=== PATIENT | female | born 1985 | race Caucasian/White ===

== ENCOUNTER 2016-07-09 15:18 | Emergency (ER) | payer OTHER ==
--- NOTE | 2016-07-09 18:29 | ED NURSING NOTES ---
Clinical Report - Nurses [facility] [address] [place] [address] 07/09/2016 15:22 Patient: SHIKHA DE LEÓN TRIAGE Triage time 15:43 Jul 09 2016. Acuity: LEVEL 3. Chief Complaint: ABDOMINAL PAIN, NAUSEA and DIARRHEA. Alert. RICCARDO COMA SCORE: Riccardo Coma Scale: 15- eyes open spontaneously (4); best verbal response- oriented x 4 (5); best motor response- obeys commands (6). --15:58 Delroy Billings R.N. 15:43 07/09/16. BP: 162/90. HR: 112. RR: 16. O2 saturation: 100% on room air. Temp: 99.2 F. Pain level now: 6/10. Additional comments: Abdominal Pain. --15:58 Delroy Billings R.N. Weight: 62.5 kg stated. Height/Length: 65 inches Per Patient. BMI: 23. --15:47 Delroy Billings R.N. Medications Methadone HCl Oral 50 mg , daily. --15:48 Delroy Billings R.N. Omeprazole Oral 20 mg, daily. --15:49 Delroy Billings R.N. Ranitidine HCl Oral 150 mg, daily. --15:49 Delroy Billings R.N. Allergies No Known Drug Allergy. --15:48 Delroy Billings R.N. Medication/allergy information source: the patient. --15:58 Delroy Billings R.N. History Arrived by private vehicle. Historian: patient. Accompanied by spouse. [facility] ( Abdominal Pain on the RLQ associated with diarrhea last night.). This started today. She has had nausea, diarrhea and abdominal pain. ( Weakness). 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 PAST MEDICAL HX: Immunizations: status is unknown. Last normal menstrual period- Doesn't have periods anymore. Denies current . SOCIAL HX: Heavy tobacco smoker (cigarette)- less than 1 pack per day. History of drug use: cocaine, narcotics, heroin. No recent travel. ABUSE ASSESSMENT: No report of abuse. FALL RISK ASSESSMENT: Fall risk assessment completed. No fall risk identified. NUTRITIONAL RISK ASSESSMENT: The nutritional risk assessment revealed no deficiencies. FUNCTIONAL ASSESSMENT: Functional assessment: no impairments noted. LEARNING NEEDS ASSESSMENT: The learning needs assessment revealed no barriers. SKIN INTEGRITY ASSESSMENT: Skin integrity risk assessment completed. No skin integrity risk identified. --15:58 Delroy Billings R.N. PROBLEMS: TB Carrier. Gout. Gerd. Kidney Infection. Substance Abuse. Hepatitis C antibody measurement. --15:54 Delroy Billings R.N. ADDITIONAL SURGERIES: Cholecystectomy. --15:54 Delroy Billings R.N. Interventions ID band on patient. To treatment room. --15:58 Delroy Billings R.N. PHYSICAL ASSESSMENT Ambulatory to room. GENERAL / NEURO / PSYCH: Alert. Oriented X 4. Appears in pain. HEENT: Mucous membranes are pink. RESPIRATORY: Respirations not labored. CVS: Cardiac rhythm: sinus tachycardia. Capillary refill less than 2 seconds. GI / : Abdomen soft. Abdominal tenderness in the epigastric area and right lower quadrant. SKIN: Skin is warm and dry. --15:59 Delroy Billings R.N. NURSING PROGRESS NOTES Patient gowned. Reassurance given to the patient. Patient identifiers checked. Call light placed in reach. Side rails up. Bed placed in lowest position. Brakes of bed on. Patient ready for evaluation- chart flagged and ED physician notified. --15:59 Delroy Billings R.N. 16:37 07/09/2016 Site #1 started via IV in the left forearm with an 20g angiocath, with aseptic technique and good blood return; one attempt. Blood drawn: rainbow set. Labeled in the presence of the patient and sent to the lab. Saline lock flushed with 10 mL saline. --16:47 Delroy Billings R.N. 16:38 07/09/2016 Started bag #1 1000 mL IV Fluids IV NS (Saline); at 1000 mL/hr over 60 minute(s) via site #1 via IV pump. Allergies verified and confirmed 5 rights. IV patency established. IV site checked: no pain, redness, or swelling. IV flushed thoroughly pre- and post-medication administration. --16:48 Delroy Billings R.N. 17:25 07/09/2016 Toradol IVP 30 mg given over 1 minute(s) via site #1. Allergies verified and confirmed 5 rights. IV patency established. IV site checked: no pain, redness, or swelling. IV flushed thoroughly pre- and post-medication administration. IVP given by RN. --17:25 Rachel Long R.N. 17:25 07/09/2016 Zofran (Ondansetron HCl) IVP 4 mg given over 1 minute(s) via site #1. Allergies verified and confirmed 5 rights. IV patency established. IV site checked: no pain, redness, or swelling. IV flushed thoroughly pre- and post-medication administration. IVP given by RN. --17:25 Rachel Long R.N. 17:53 07/09/2016 IV Fluids IV NS Bag Change: bag #1 infused. Total amount infused: 1000. STARTED bag #2 (1000 mL) at 1000 mL/hr via IV pump. Confirmed 5 rights. IV patency established. IV site checked: no pain, redness, or swelling. IV flushed thoroughly. --17:58 Delroy Billings R.N. 18:17 07/09/2016 K-DUR (Potassium Chloride Nadya ER) PO 40 meq given. Allergies verified and confirmed 5 rights. --18:17 Rachel Long R.N. DISPOSITION / DISCHARGE 19:07 07/09/16. BP: 148/70. HR: 98. RR: 16. O2 saturation: 100% on room air. Temp: 98.9 F (oral). --19:09 Rachel Long R.N. Departure time: 18:50 Jul 09 2016. Condition at departure: improved and stable. No learning barriers present. Discharge instructions provided and reviewed with the patient. Patient verbalized understanding. Written instructions provided in Croatian. The patient was discharged by the nurse practitioner. She was discharged home and accompanied by lidar scientist. She left the Emergency Department ambulatory and via private vehicle. Candy Cutter Hand driving. --19: Rachel Long R.N. 18:44 07/09/2016 Site #1 removed upon discharge. Catheter intact. Manual pressure and bandaid applied. --19:09 Rachel Long R.N. 19:14 07/09/2016 IV Fluids IV NS Discontinued: bag #2 discontinued upon discharge. Total amount infused: 900 mL. IV patency established. IV site checked: no pain, redness, or swelling. IV flushed thoroughly. --19:14 Rachel Long R.N. Locked/Released at 07/09/2016 19:14 by Rachel Long R.N.
--- NOTE | 2016-07-09 18:29 | ED NURSING NOTES ---
Clinical Report - Nurses [facility] [address] [place] [address] 07/09/2016 15:22 Patient: SHIKHA DE LEÓN TRIAGE Triage time 15:43 Jul 09 2016. Acuity: LEVEL 3. Chief Complaint: ABDOMINAL PAIN, NAUSEA and DIARRHEA. Alert. RICCARDO COMA SCORE: Riccardo Coma Scale: 15- eyes open spontaneously (4); best verbal response- oriented x 4 (5); best motor response- obeys commands (6). --15:58 Delroy Billings R.N. 15:43 07/09/16. BP: 162/90. HR: 112. RR: 16. O2 saturation: 100% on room air. Temp: 99.2 F. Pain level now: 6/10. Additional comments: Abdominal Pain. --15:58 Delroy Billings R.N. Weight: 62.5 kg stated. Height/Length: 65 inches Per Patient. BMI: 23. --15:47 Delroy Billings R.N. Medications Methadone HCl Oral 50 mg , daily. --15:48 Delroy Billings R.N. Omeprazole Oral 20 mg, daily. --15:49 Delroy Billings R.N. Ranitidine HCl Oral 150 mg, daily. --15:49 Delroy Billings R.N. Allergies No Known Drug Allergy. --15:48 Delroy Billings R.N. Medication/allergy information source: the patient. --15:58 Delroy Billings R.N. History Arrived by private vehicle. Historian: patient. Accompanied by spouse. [facility] ( Abdominal Pain on the RLQ associated with diarrhea last night.). This started today. She has had nausea, diarrhea and abdominal pain. ( Weakness). 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 PAST MEDICAL HX: Immunizations: status is unknown. Last normal menstrual period- Doesn't have periods anymore. Denies current . SOCIAL HX: Heavy tobacco smoker (cigarette)- less than 1 pack per day. History of drug use: cocaine, narcotics, heroin. No recent travel. ABUSE ASSESSMENT: No report of abuse. FALL RISK ASSESSMENT: Fall risk assessment completed. No fall risk identified. NUTRITIONAL RISK ASSESSMENT: The nutritional risk assessment revealed no deficiencies. FUNCTIONAL ASSESSMENT: Functional assessment: no impairments noted. LEARNING NEEDS ASSESSMENT: The learning needs assessment revealed no barriers. SKIN INTEGRITY ASSESSMENT: Skin integrity risk assessment completed. No skin integrity risk identified. --15:58 Delroy Billings R.N. PROBLEMS: TB Carrier. Gout. Gerd. Kidney Infection. Substance Abuse. Hepatitis C antibody measurement. --15:54 Delroy Billings R.N. ADDITIONAL SURGERIES: Cholecystectomy. --15:54 Delroy Billings R.N. Interventions ID band on patient. To treatment room. --15:58 Delroy Billings R.N. PHYSICAL ASSESSMENT Ambulatory to room. GENERAL / NEURO / PSYCH: Alert. Oriented X 4. Appears in pain. HEENT: Mucous membranes are pink. RESPIRATORY: Respirations not labored. CVS: Cardiac rhythm: sinus tachycardia. Capillary refill less than 2 seconds. GI / : Abdomen soft. Abdominal tenderness in the epigastric area and right lower quadrant. SKIN: Skin is warm and dry. --15:59 Delroy Billings R.N. NURSING PROGRESS NOTES Patient gowned. Reassurance given to the patient. Patient identifiers checked. Call light placed in reach. Side rails up. Bed placed in lowest position. Brakes of bed on. Patient ready for evaluation- chart flagged and ED physician notified. --15:59 Delroy Billings R.N. 16:37 07/09/2016 Site #1 started via IV in the left forearm with an 20g angiocath, with aseptic technique and good blood return; one attempt. Blood drawn: rainbow set. Labeled in the presence of the patient and sent to the lab. Saline lock flushed with 10 mL saline. --16:47 Delroy Billings R.N. 16:38 07/09/2016 Started bag #1 1000 mL IV Fluids IV NS (Saline); at 1000 mL/hr over 60 minute(s) via site #1 via IV pump. Allergies verified and confirmed 5 rights. IV patency established. IV site checked: no pain, redness, or swelling. IV flushed thoroughly pre- and post-medication administration. --16:48 Delroy Billings R.N. 17:25 07/09/2016 Toradol IVP 30 mg given over 1 minute(s) via site #1. Allergies verified and confirmed 5 rights. IV patency established. IV site checked: no pain, redness, or swelling. IV flushed thoroughly pre- and post-medication administration. IVP given by RN. --17:25 Rachel Long R.N. 17:25 07/09/2016 Zofran (Ondansetron HCl) IVP 4 mg given over 1 minute(s) via site #1. Allergies verified and confirmed 5 rights. IV patency established. IV site checked: no pain, redness, or swelling. IV flushed thoroughly pre- and post-medication administration. IVP given by RN. --17:25 Rachel Long R.N. 17:53 07/09/2016 IV Fluids IV NS Bag Change: bag #1 infused. Total amount infused: 1000. STARTED bag #2 (1000 mL) at 1000 mL/hr via IV pump. Confirmed 5 rights. IV patency established. IV site checked: no pain, redness, or swelling. IV flushed thoroughly. --17:58 Delroy Billings R.N. 18:17 07/09/2016 K-DUR (Potassium Chloride Nadya ER) PO 40 meq given. Allergies verified and confirmed 5 rights. --18:17 Rachel Long R.N. DISPOSITION / DISCHARGE 19:07 07/09/16. BP: 148/70. HR: 98. RR: 16. O2 saturation: 100% on room air. Temp: 98.9 F (oral). --19:09 Rachel Long R.N. Departure time: 18:50 Jul 09 2016. Condition at departure: improved and stable. No learning barriers present. Discharge instructions provided and reviewed with the patient. Patient verbalized understanding. Written instructions provided in Tajik. The patient was discharged by the nurse practitioner. She was discharged home and accompanied by central supply assistant. She left the Emergency Department ambulatory and via private vehicle. Spot Machine Operator driving. --19: Rachel Long R.N. 18:44 07/09/2016 Site #1 removed upon discharge. Catheter intact. Manual pressure and bandaid applied. --19:09 Rachel Long R.N. 19:14 07/09/2016 IV Fluids IV NS Discontinued: bag #2 discontinued upon discharge. Total amount infused: 900 mL. IV patency established. IV site checked: no pain, redness, or swelling. IV flushed thoroughly. --19:14 Rachel Long R.N. Locked/Released at 07/09/2016 19:14 by Rachel Long R.N.
--- NOTE | 2016-07-09 18:29 | ED CLINICAL REPORT ---
Clinical Report - Physicians/Mid Levels [facility] [address] [place] [address] 07/09/2016 15:22 Patient: SHIKHA DE LEÓN Time Seen: 16:13; initial patient contact, initial documentation, patient care assumed. Arrived- By private vehicle. Historian- patient and spouse. HISTORY OF PRESENT ILLNESS Chief Complaint: DIARRHEA. This started last night and is still present. No recent travel. She has had nausea and constant abdominal pain. The pain is described as located in the RUQ and right side of the abdomen. She has had diarrhea (today). This has occurred several times. It has been watery and has been associated with cramps. No bloody, mucous containing or blood-tinged diarrhea. No constipation, flank pain, history of possible bad food exposure, known contact with a sick individual or change in routine. Has not recently been camping or on antibiotics. The illness is described as moderate. Similar symptoms previously: None. Recent medical care: Not recently seen/assessed. REVIEW OF SYSTEMS No fever, muscle aches, difficulty with urination, dark urine or chest pain. No difficulty breathing. All systems otherwise negative, except as recorded above. PAST HISTORY See nurses notes. PROBLEMS: TB Carrier. Gout. Gerd. Kidney Infection. Substance Abuse. Hepatitis C antibody measurement. --15:54 Delroy Billings RCyN. ADDITIONAL SURGERIES: Cholecystectomy. --15:54 Delroy Billings RCyN. SOCIAL HISTORY Light tobacco smoker. Occasional alcohol use. History of heavy IV drug use: cocaine, narcotics, heroin. Recently used drugs. No recent travel. Is a local resident. FAMILY HISTORY Negative. ADDITIONAL NOTES The nursing notes have been reviewed with agreement regarding the chief complaint, HPI, ROS, PMH and patient medications and allergies. PHYSICAL EXAM Vital Signs: 07/09/2016 15:43 BP: 162/90. HR: 112. RR: 16. O2 saturation: 100%. Temp: 99.2 F. Pain level now: 6/10. Have been reviewed as abnormal and appear to be correct. Hypertensive. Tachycardic. Respiratory rate normal. Temperature normal. Oxygen saturation normal. Appearance: Alert. Oriented X3. No acute distress. Eyes: Pupils equal, round and reactive to light. Eyes normal inspection. Neck: Normal inspection. Neck supple. CVS: Normal heart rate and rhythm. Heart sounds normal. Pulses normal. Respiratory: No respiratory distress. Breath sounds normal. Abdomen: Soft and nontender. Bowel sounds normal. No organomegaly. No mass. Back: Normal inspection. Skin: Skin warm and dry. Normal skin color. No rash. Normal skin turgor. Extremities: Extremities exhibit normal ROM. No lower extremity edema. Neuro: Oriented X 3. No motor deficit. No sensory deficit. LABS, X-RAYS, AND EKG Laboratory Tests: CBC w Diff: (EDMOND: 07/09/2016 16:20) ( [facility] 07/09/2016 17:30) Final results Test Result Flag Units (Reference) WHITE BLOOD COUNT 8.5 K/uL (4.5-11.5) RED BLOOD COUNT 3.42 L M/uL (4.00-5.20) HEMOGLOBIN 11.2 L gm/dL (12.0-16.0) HEMATOCRIT 33.0 L % (36.0-46.0) MEAN CELL VOLUME 96 fL (80-100) MEAN CORPUSCULAR HGB 33 pg (26-34) MEAN CORPUSCULAR HGB CONC 34 g/dL (31-37) RED CELL DISTRIBUTION WIDTH 15.0 H % (11.6-14.8) PLATELET COUNT 143 L K/uL (150-400) NEUTROPHIL % 58.5 % (50-75) LYMPH % 31.3 % (25-40) MONO % 6.1 % (3-14) EOSINOPHIL % 3.8 % (0-4) BASOPHIL % 0.3 % (0-2) Lipase: (EDMOND: 07/09/2016 16:20) ( [facility] 07/09/2016 17:41) Final results Test Result Flag Units (Reference) LIPASE 60 L U/L (73-393) AMYLASE 20 L U/L (25-115) CMP: (EDMOND: 07/09/2016 16:20) ( MsgRcvd 07/09/2016 17:01) Final results Test Result Flag Units (Reference) GLUCOSE 101 mg/dL (70-110) BUN 8 mg/dL (7-18) CREATININE 0.7 mg/dL (0.6-1.3) Estimated GFR >60 mL/min Estimated GFR- >60 mL/min Note: Persistent reduction over 3 months in eGFR<60 mL/min/1.73 m2 defines CKD. Patients with eGFR values>=60 mL/min/1.73 m2 may also have CKD if evidence ofpersistent proteinuria. Additional information may be foundat www.kidney.org. SODIUM 138 mmol/L (136-145) POTASSIUM 3.1 L mmol/L (3.5-5.1) CHLORIDE 102 mmol/L (98-107) CARBON DIOXIDE 26 mmol/L (21-32) CALCIUM 8.7 mg/dL (8.5-10.1) TOTAL PROTEIN 8.1 g/dL (6.4-8.2) ALBUMIN 3.4 g/dL (3.3-5.0) BILIRUBIN, TOTAL 4.7 H mg/dL (0.0-1.0) ALKALINE PHOSPHATASE 137 H U/L (46-116) AST (SGOT) 73 H U/L (15-37) ALT (SGPT) 57 U/L (12-78) . PROGRESS AND PROCEDURES Course of Care: 17:45 07/09/16. pt has [facility] that reads [facility] issue as here now, no narcs, #5 er visits, see report for full details 18:29 07/09/16. ivf's approx 500ml in, no urine sample yet, pt feeling better and thanked me for the care, dc plan discussed. Patient and spouse counseled in person regarding the patient's stable condition, test results and diagnosis. 18:29. Differential Diagnosis: I considered infectious etiology, inflammatory etiology, Crohn's disease, ulcerative colitis, diverticulitis, bacterial overgrowth, hyperkalemia, colon cancer, medication related etiology, irritable bowel syndrome and gallbladder disease as a possible cause of diarrhea in this patient. This is a partial list of diagnoses considered. (substance abuse). Above considerations are based on history, physical exam and laboratory data. Differential diagnosis was discussed with patient. Disposition: Discharged home in good and improved condition (18:29). Condition: good and stable. CLINICAL IMPRESSION Diarrhea Hypokalemia INSTRUCTIONS Drink plenty of fluids for the next 24 hours until better. (over the counter diarrhea medicine, as discussed). Warnings: GENERAL WARNINGS: Return or contact your physician immediately if your condition worsens or changes unexpectedly, if not improving as expected, or if other problems arise. SPECIFICALLY, return if you develop pain in the abdomen, fever, the inability to keep fluids down, blood in vomitus, blood in diarrhea, fainting or lightheadedness. Follow-up: Follow up with your doctor in about two days even if well. Call for an appointment. Summary of care provided to patient. Understanding of the discharge instructions verbalized by patient. (Electronically signed by Nola Walton A.R.N.P. 07/09/2016 20:04)
--- NOTE | 2016-07-09 18:29 | ED ORDER SUMMARY ---
..... Patient: SHIKHA DE LEÓN OrderSheet [facility] VisitID: [id number] [place] [address] 31y, F Registration Date/Time: 07/09/2016 ORDER SHEET Weight: 62.5 kg (stated) Allergies: No Known Drug Allergy GENERAL ORDERS: CMP Urgent (16:45 07/09/2016 JRomanelli R.N. verbal order read back to HBivens A.R.N.P.) (16:45 JRomanelli R.N.) CBC w Diff Urgent (17:09 07/09/2016 HBivens A.R.N.P.) (Ack 17:16 LTapper) (17:25 MWinterer R.N.) Amylase Urgent (17:09 07/09/2016 HBivens A.R.N.P.) (Ack 17:16 LTapper) (17:25 MWinterer R.N.) Lipase Urgent (17:07/09/2016 HBivens A.R.N.P.) (Ack 17:16 LTapper) (17:25 MWinterer R.N.) Urine Urgent (17:09 07/09/2016 HBivens A.R.N.P.) (Ack 17:16 LTapper) Urine Drug Screen Urgent (17:09 07/09/2016 HBivens A.R.N.P.) (Ack 17:16 LTapper) UA-Culture if indicated Urgent (18:17 07/09/2016 HBivens A.R.N.P.) (Ack 18:41 RKjeuga) MEDICATION ORDERS: K-Dur PO 40 meq (Do not crush or chew, NOW) (17:44 07/09/2016 HBivens A.R.N.P.) (Ack 18:14 MWinterer R.N.) (18:17 MWinterer R.N.) IV FLUIDS: IV Saline Lock (16:45 07/09/2016 JRomanelli R.N. verbal order read back to HBivens A.R.N.P.) (16:47 JRomanelli R.N.) IV NS : initial bolus none -, then 1000 mL/hr for X2 (NOW) (16:46 07/09/2016 uGrjit R.N. verbal order read back to HBivens A.R.N.P.) (16:48 Gurjit R.N.) Toradol IV 30 mg (NOW) (17:09 07/09/2016 HBivens A.R.N.P.) (Ack 17:18 MWinterer R.N.) (17:25 MWinterer R.N.) Zofran IV 4 mg (NOW) (17:09 07/09/2016 HBivens A.R.N.P.) (Ack 17:18 MWinterer R.N.) (17:25 MWinterer R.N.) ORDER SHEET NOTES: [Electronically signed by Rachel Long R.N. (19:14 07/09/2016)] [Electronically signed by Nola Walton A.R.N.P. (20:04 07/09/2016)] [Electronically locked/signed by Rachel Long R.N. (19:14 07/09/2016)]
--- NOTE | 2016-07-09 18:29 | ED ORDER SUMMARY ---
..... Patient: SHIKHA DE LEÓN OrderSheet [facility] VisitID: [id number] [place] [address] 31y, F Registration Date/Time: 07/09/2016 ORDER SHEET Weight: 62.5 kg (stated) Allergies: No Known Drug Allergy GENERAL ORDERS: CMP Urgent (16:45 07/09/2016 JRomanelli R.N. verbal order read back to HBivens A.R.N.P.) (16:45 JRomanelli R.N.) CBC w Diff Urgent (17:09 07/09/2016 HBivens A.R.N.P.) (Ack 17:16 LTapper) (17:25 MWinterer R.N.) Amylase Urgent (17:09 07/09/2016 HBivens A.R.N.P.) (Ack 17:16 LTapper) (17:25 MWinterer R.N.) Lipase Urgent (17:07/09/2016 HBivens A.R.N.P.) (Ack 17:16 LTapper) (17:25 MWinterer R.N.) Urine Urgent (17:09 07/09/2016 HBivens A.R.N.P.) (Ack 17:16 LTapper) Urine Drug Screen Urgent (17:09 07/09/2016 HBivens A.R.N.P.) (Ack 17:16 LTapper) UA-Culture if indicated Urgent (18:17 07/09/2016 HBivens A.R.N.P.) (Ack 18:41 RKjeuga) MEDICATION ORDERS: K-Dur PO 40 meq (Do not crush or chew, NOW) (17:44 07/09/2016 HBivens A.R.N.P.) (Ack 18:14 MWinterer R.N.) (18:17 MWinterer R.N.) IV FLUIDS: IV Saline Lock (16:45 07/09/2016 JRomanelli R.N. verbal order read back to HBivens A.R.N.P.) (16:47 JRomanelli R.N.) IV NS : initial bolus none -, then 1000 mL/hr for X2 (NOW) (16:46 07/09/2016 Gurjit R.N. verbal order read back to HBivens A.R.N.P.) (16:48 Gurjit R.N.) Toradol IV 30 mg (NOW) (17:09 07/09/2016 HBivens A.R.N.P.) (Ack 17:18 MWinterer R.N.) (17:25 MWinterer R.N.) Zofran IV 4 mg (NOW) (17:09 07/09/2016 HBivens A.R.N.P.) (Ack 17:18 MWinterer R.N.) (17:25 MWinterer R.N.) ORDER SHEET NOTES: [Electronically signed by Rachel Long R.N. (19:14 07/09/2016)] [Electronically signed by Nola Walton A.R.N.P. (20:04 07/09/2016)] [Electronically locked/signed by Rachel Long R.N. (19:14 07/09/2016)]
--- NOTE | 2016-07-09 20:04 | ED MAR SUMMARY ---
..... Medication Administration Record [facility] [address] [place] [address] Patient: SHIKHA DE LEÓN Visit ID: [id number] 31y, F Weight: 62.5 kg Height/Length: 65 in BMI: 23 ALLERGIES: No Known Drug Allergy Start 16:38 07/09/2016 Delroy Billings R.N., Stop 19:14 07/09/2016 Rachel Long R.N. Medication Administered: IV NS (SALINE), Dose: IV Fluids over 60 minute(s), Rate: 1000 mL/hr, Dispensed: 1000 mL bag, Site: #1 left forearm. Medication Ordered: IV NS : initial bolus none -, then 1000 mL/hr for X2 (NOW). Given 17:25 07/09/2016 Rachel Long R.N. Medication Administered: TORADOL [IVP], Dose: 30 mg IVP over 1 minute(s), Site: #1 left forearm. Medication Ordered: Toradol IV 30 mg (NOW). Given 17:25 07/09/2016 Rachel Long R.N. Medication Administered: ZOFRAN [IVP] (ONDANSETRON HCL), Dose: 4 mg IVP over 1 minute(s), Site: #1 left forearm. Medication Ordered: Zofran IV 4 mg (NOW). Given 18:17 07/09/2016 Rachel Long R.N. Medication Administered: K-DUR [PO] (POTASSIUM CHLORIDE KAYLA ER), Dose: 40 meq PO. Medication Ordered: K-Dur PO 40 meq (Do not crush or chew, NOW).
--- NOTE | 2016-07-09 20:04 | ED MED RECONCILIATION SUMMARY ---
Patient: SHIKHA DE LEÓN Medication Reconciliation Report [facility] VisitID: [id number] [address] [place] [address] 31y, F Registration Date/Time: 07/09/2016 Weight: 62.5 kg Height/Length: 65 in. BMI: 23.0 ALLERGIES: No Known Drug Allergy The patient's Home Medications are listed below: THE FOLLOWING MEDICATIONS NEED TO BE RECONCILED: Methadone HCl Oral 50 mg , daily Omeprazole Oral 20 mg, daily Ranitidine HCl Oral 150 mg, daily The source(s) of the original Home Medication information: patient The following Medications were given to the patient in the Emergency Department: IV NS IV Fluids bolus 0, then 1000 mL/hr, administered: 07/09/2016 4:38:00 PM Toradol [IVP] IVP 30 mg, administered: 07/09/2016 5:25:00 PM Zofran [IVP] IVP 4 mg, administered: 07/09/2016 5:25:00 PM K-DUR [PO] PO 40 meq, administered: 07/09/2016 6:17:00 PM The following Medications were prescribed to the patient: None.
--- NOTE | 2016-07-09 20:04 | ED MED RECONCILIATION SUMMARY ---
Patient: SHIKHA DE LEÓN Medication Reconciliation Report [facility] VisitID: [id number] [address] [place] [address] 31y, F Registration Date/Time: 07/09/2016 Weight: 62.5 kg Height/Length: 65 in. BMI: 23.0 ALLERGIES: No Known Drug Allergy The patient's Home Medications are listed below: THE FOLLOWING MEDICATIONS NEED TO BE RECONCILED: Methadone HCl Oral 50 mg , daily Omeprazole Oral 20 mg, daily Ranitidine HCl Oral 150 mg, daily The source(s) of the original Home Medication information: patient The following Medications were given to the patient in the Emergency Department: IV NS IV Fluids bolus 0, then 1000 mL/hr, administered: 07/09/2016 4:38:00 PM Toradol [IVP] IVP 30 mg, administered: 07/09/2016 5:25:00 PM Zofran [IVP] IVP 4 mg, administered: 07/09/2016 5:25:00 PM K-DUR [PO] PO 40 meq, administered: 07/09/2016 6:17:00 PM The following Medications were prescribed to the patient: None.
--- NOTE | 2016-07-09 20:04 | ED MAR SUMMARY ---
..... Medication Administration Record [facility] [address] [place] [address] Patient: SHIKHA DE LEÓN Visit ID: [id number] 31y, F Weight: 62.5 kg Height/Length: 65 in BMI: 23 ALLERGIES: No Known Drug Allergy Start 16:38 07/09/2016 Delroy Billings R.N., Stop 19:14 07/09/2016 Rachel Long R.N. Medication Administered: IV NS (SALINE), Dose: IV Fluids over 60 minute(s), Rate: 1000 mL/hr, Dispensed: 1000 mL bag, Site: #1 left forearm. Medication Ordered: IV NS : initial bolus none -, then 1000 mL/hr for X2 (NOW). Given 17:25 07/09/2016 Rachel Long R.N. Medication Administered: TORADOL [IVP], Dose: 30 mg IVP over 1 minute(s), Site: #1 left forearm. Medication Ordered: Toradol IV 30 mg (NOW). Given 17:25 07/09/2016 Rahcel Long R.N. Medication Administered: ZOFRAN [IVP] (ONDANSETRON HCL), Dose: 4 mg IVP over 1 minute(s), Site: #1 left forearm. Medication Ordered: Zofran IV 4 mg (NOW). Given 18:17 07/09/2016 Rachel Long R.N. Medication Administered: K-DUR [PO] (POTASSIUM CHLORIDE KAYLA ER), Dose: 40 meq PO. Medication Ordered: K-Dur PO 40 meq (Do not crush or chew, NOW).
--- NOTE | 2016-07-09 20:04 | ED DISCHARGE INSTRUCTIONS ---
Patient: SHIKHA DE LEÓN General Instructions [facility] VisitID: [id number] [place] [address] 31y, F Registration Date/Time: 07/09/2016 Diarrhea Hypokalemia INSTRUCTIONS Drink plenty of fluids for the next 24 hours until better. (over the counter diarrhea medicine, as discussed). Warnings: GENERAL WARNINGS: Return or contact your physician immediately if your condition worsens or changes unexpectedly, if not improving as expected, or if other problems arise. SPECIFICALLY, return if you develop pain in the abdomen, fever, the inability to keep fluids down, blood in vomitus, blood in diarrhea, fainting or lightheadedness. Follow-up: Follow up with your doctor in about two days even if well. Call for an appointment. Summary of care provided to patient. Understanding of the discharge instructions verbalized by patient. ADDITIONAL INFORMATION Diarrhea, Uncertain Cause (Adult, Report Pending) Diarrhea has several possible causes. Commonstomach fluis caused by a virus. Food poisoning, bacteria or parasites are other causes for diarrhea. Only diarrhea caused by bacteria or parasites requires treatment with an antibiotic. Diarrhea from a virus or food poisoning improves with simple home treatment. A stool sample is needed to make the diagnosis of an infection with bacteria or parasites. Up to three stool specimens may be required to diagnose This may take up to two days to get the result. It may be necessary to wait until the stool test is complete to make the diagnosis and select the best antibiotic to prescribe. Home Care: If symptoms are severe, rest at home for the next 24 hours or until you are feeling better. You may use acetaminophen (Tylenol) or ibuprofen (Motrin, Advil) to control fever, unless another medicine was prescribed. [NOTE: If you have chronic liver or kidney disease or ever had a stomach ulcer or GI bleeding, talk with your doctor before using these medicines.] (Aspirin should never be used in anyone under 18 years of age who is ill with a fever. It may cause severe liver damage.) Avoid tobacco, caffeine and alcohol, which may worsen your symptoms. If anti-diarrhea medicine was prescribed, take this only as directed. Sometimes anti-diarrhea medicine can make your condition worse if the cause is an infectious diarrhea. Therefore, anti-diarrhea medicine should not be taken for this condition unless advised by your doctor. During The First 12-24 Hours follow the diet below: BEVERAGES: Sport drinks like Gatorade, soft drinks without caffeine; lionel celena, mineral water (plain or flavored), decaffeinated tea and coffee. SOUPS: Clear broth, consomm and bouillon DESSERTS: Plain gelatin (Jell-O), popsicles and fruit juice bars. During The Next 24 Hours you may add the following to the above: Hot cereal, plain toast, bread, rolls, crackers Plain noodles, rice, mashed potatoes, chicken noodle or rice soup Unsweetened canned fruit (avoid pineapple), bananas Limit fat intake to less than 15 grams per day by avoiding margarine, butter, oils, mayonnaise, sauces, gravies, fried foods, peanut butter, meat, poultry and fish. Limit fiber; avoid raw or cooked vegetables, fresh fruits (except bananas) and bran cereals. Limit caffeine and chocolate. No spices or seasonings except salt. During The Next 24 Hours Gradually resume a normal diet, as you feel better and your symptoms lessen. Follow Up with your doctor or as advised if you are not improving over the next two days. If you were asked to bring a specimen from home, bring the sample on the day of collection. You may call in 2 days (or as directed) for the results. Get Prompt Medical Attention if any of the following occur: Increasing abdominal pain or constant lower right abdominal pain Continued vomiting (unable to keep liquids down) Frequent diarrhea (more than 5 times a day) Blood in vomit or stool (black or red color) Reduced oral intake Dark urine, reduced urine output Weakness, dizziness, fainting Drowsiness, confusion, stiff neck or seizure Fever of 100.4F (38C) oral or higher, not better with fever medication New rash Gastroenteritis [Non-Infectious, 6 Yr-Adult] Your symptoms today are coming from the intestinal tract. This may occur as a result of food sensitivity, inflammation of the GI tract, medicines, stress or other causes not related to infection. This may last from 1-3 days. Antibiotics are not effective, but simple home treatment will be helpful. Home Care: If symptoms are severe, rest at home for the next 24 hours. You may use acetaminophen (Tylenol) or ibuprofen (Motrin, Advil) to control fever, unless another medicine was prescribed. [NOTE: If you have chronic liver or kidney disease or ever had a stomach ulcer or GI bleeding, talk with your doctor before using these medicines.] (Aspirin should never be used in anyone under 18 years of age who is ill with a fever. It may cause severe liver damage.) Avoid tobacco and alcohol use, which may make your symptoms worse. If medicines for diarrhea or vomiting were prescribed, take only as directed. Once vomiting stops, then follow these guidelines: During The First 12-24 Hours follow the diet below: gingerale, mineral water (plain or flavored), decaffeinated tea and coffee. During The Next 24 Hours you may add the following to the above: DURING THE NEXT 24 HOURS Gradually resume a normal diet, as you feel better and your symptoms lessen. Follow Up with your doctor as advised if you are not improving over the next 2-3 days. If a stool (diarrhea) sample was taken, you may call in 2 days (or as directed) for the results. Get Prompt Medical Attention if any of the following occur: Increasing abdominal pain or constant lower right abdominal pain Continued vomiting (unable to keep liquids down) Frequent diarrhea (more than 5 times a day) Blood in vomit or stool (black or red color) Reduced oral intake Dark urine, reduced urine output Weakness, dizziness, fainting Drowsiness, confusion, stiff neck or seizure Fever of 100.4F (38C) or higher, or as directed by your healthcare provider New rash Hypokalemia Hypokalemia means a low level of potassium in the blood. This most often occurs in patients who take diuretics (water pills). It can also occur due to severe vomiting or diarrhea. A mild case usually causes no symptoms. It is only found with blood testing. More severe potassium loss causes generalized weakness, muscle or abdominal cramping, heart palpitations (rapid or irregular heartbeats) and low blood pressure. Home Care: 1) Take any potassium supplements prescribed. 2) Eat foods rich in potassium. The highest amount is found in artichoke, baked potatoes, spinach, cantaloupe, honeydew melon, cod, halibut, salmon, and scallops. White, red, or segura beans are also very good sources. A modest amount is found in orange juice, bananas, carrots, and tomato juice. 3) Certain types of diuretics (water pills), such as Lasix (furosemide), require that you take potassium supplements for as long as you take the diuretic pills. If you are taking a diuretic, discuss the need for potassium supplements with your doctor. Follow Up with your doctor for a repeat blood test within the next week or as advised by our staff. Get Prompt Medical Attention if any of the following occur: -- Increased weakness -- Feeling dizzy -- Irregular heartbeat, extra beats or very fast heart rate -- Fainting spell You have been given the following additional information: Diarrhea, Unk Cause (Adult) Report Pendg Gastroenteritis, Non-Infectious (Child) (Adult) Hypokalemia (Electronically signed by Nola Walton A.R.N.P. 07/09/2016 20:04)
== END 2016-07-09 18:50 | disposition home or self-care (01) ==
LOC: ED SRH 15:18
DX: R19.7 Diarrhea, unspecified (principal); E87.6 Hypokalemia; F17.200 Nicotine dependence, unspecified, uncomplicated; Z79.899 Other long term (current) drug therapy
CPT/HCPCS: 90100; 92235; 92530; 95059